=== PATIENT | female | born 1975 ===

== ENCOUNTER 2018-12-12 15:08 | Emergency (ER) | payer SELFPAY ==
[2018-12-12 15:20] VITALS: BP 116/71; PULSE 69; RESP 16; TEMP 98.4; O2SAT 99
--- NOTE | 2018-12-12 16:49 | ED PDOC ---
HPI: General Adult Time Seen by Provider: 12/12/18 15:29 Chief Complaint (Nursing): ENT Problem Chief Complaint (Provider): ENT problem History Per: Patient History/Exam Limitations: no limitations Onset/Duration Of Symptoms: Days Current Symptoms Are (Timing): Still Present Additional Complaint(s): 43 year old female presents to the ED for an evaluation of runny nose and mild sore throat onset 2 days ago. Patient denies fever, chills, cough or rash as obtained by language line. PMD: Trace Rice Past Medical History Reviewed: Historical Data, Nursing Documentation, Vital Signs Vital Signs: Last Vital Signs Temp 98.4 F 12/12/18 15:16 Pulse 69 12/12/18 15:16 Resp 16 12/12/18 15:16 BP 116/71 12/12/18 15:16 Pulse Ox 99 12/12/18 15:16 - Medical History PMH: No Chronic Diseases - Family History Family History: States: Unknown Family Hx - Social History Current smoker - smoking cessation education provided: No Alcohol: None Drugs: Denies - Home Medications Home Medications: Ambulatory Orders Medication Instructions Recorded Cetirizine HCl [Zyrtec] 10 mg PO QPM #21 capsule 12/12/18 - Allergies Allergies/Adverse Reactions: Allergies Allergy/AdvReac Type Severity Reaction Status Date / Time No Known Allergies Allergy Verified 12/12/18 15:16 Review of Systems ROS Statement: Except As Marked, All Systems Reviewed And Found Negative Constitutional: Negative for: Fever, Chills ENT: Positive for: Nose Discharge, Throat Pain (mild) Cardiovascular: Negative for: Chest Pain Respiratory: Negative for: Cough, Shortness of Breath Skin: Negative for: Rash Physical Exam - Reviewed Nursing Documentation Reviewed: Yes Vital Signs Reviewed: Yes - Physical Exam Appears: Positive for: Well, Non-toxic, No Acute Distress Head Exam: Positive for: ATRAUMATIC, NORMAL INSPECTION, NORMOCEPHALIC Skin: Positive for: Normal Color, Warm, Dry. Negative for: Rash Eye Exam: Positive for: Normal appearance ENT: Positive for: Normal ENT Inspection. Negative for: Nasal Congestion, Pha ryngeal Erythema Cardiovascular/Chest: Positive for: Regular Rate, Rhythm. Negative for: Murmur Respiratory: Positive for: Normal Breath Sounds. Negative for: Respiratory Distress Neurological/Psych: Positive for: Awake, Alert, Normal Tone, Oriented (x3) - ECG O2 Sat by Pulse Oximetry: 99 (RA) Pulse Ox Interpretation: Normal Medical Decision Making Medical Decision Making: Time: 1619 Plan: ED urine Influenza A B Strep Group A Antigen Revaluation 1713 Patient's serology is negative for flu a/b and group A beta strep Ag Pt. well appearing, nontoxic, tolerating po. Will give rx zyrtec ------- Scribe Attestation: Documented by Lindsay Webb, acting as a scribe for Deepika Devine PA-C. Provider Scribe Attestation: All medical record entries made by the Scribe were at my direction and personally dictated by me. I have reviewed the chart and agree that the record accurately reflects my personal performance of the history, physical exam, medical decision making, and the department course for this patient. I have also personally directed, reviewed, and agree with the discharge instructions and disposition. Disposition - Clinical Impression Clinical Impression: Seasonal allergies - Patient ED Disposition Is Patient to be Admitted: No Counseled Patient/Family Regarding: Studies Performed, Diagnosis, Need For Followup, Rx Given - Disposition Disposition: Routine/Home Disposition Time: 17:25 Condition: STABLE Prescriptions: Cetirizine HCl [Zyrtec] 10 mg PO QPM #21 capsule Instructions: Seasonal Allergies in Adults, Seasonal Allergies (DC) Forms: Multispan (Kyrgyz) Print Language: YI
== END 2018-12-12 17:37 | disposition home or self-care (01) ==
LOC: H.ER 15:08
DX: J30.2 Other seasonal allergic rhinitis (principal)